=== PATIENT | male | born 1980 | race African-American/Black ===

== ENCOUNTER 2017-04-16 13:15 | Outpatient (RCR) | payer SELFPAY ==
[2017-04-16 13:45] VITALS: BP 138/84; PULSE 93; RESP 16; TEMP 36.9; BMI 22.2
--- NOTE | 2017-04-16 14:09 | WC ---
Addendum entered by Bella Hansen 04/16/17 14:10: PT HAS RT HIP POST OP SURGICAL INCISION W/ GLORIA. STATES THEY WERE TO BE REMOVED 2 WKS AGO BY SURGEON, BUT PT HAD NO TRANSPORTATION TO [facility]. INDEPENDENTLY MADE APPT HERE. ALSO VOICES CONCERN THAT HIS OSTEOMYELITIS IS WORSENING. CURRENTLY ON PO ATBS. ACCOMPANIED BY [employer]. Original Note: FREE EVAL COMPLETED. DR LYNN AND DRESSMAKER HELPER LEENA NEWTON. ADVISED PT TO GO TO ER.
== END 2017-04-29 23:59 ==
LOC: WC 13:15
PROVIDERS: Visit Provider Surgery
DX: Z09 Encounter for follow-up examination after completed treatment for conditions other than malignant neoplasm (principal)

== ENCOUNTER 2017-04-24 17:06 | Emergency (ER) | payer MEDICAID, SELFPAY ==
[2017-04-24 17:07] VITALS: BP 123/74; PULSE 123; RESP 20; TEMP 36.8; BMI 23.2
--- NOTE | 2017-04-24 17:39 | MRI_ITS ---
STUDY: MRI RIGHT HIP REASON FOR EXAM: Male, 36 years old. Severe right hip pain. Groin pain. Clinical suspicion for osteomyelitis. TECHNIQUE: Standardized fat and water weighted pulse sequences were obtained in all 3 orthogonal planes. COMPARISON: February 20, 2017 MRI and x-ray. FINDINGS: There is moderate articular narrowing of the hip joint, with greater than 50% loss of the hyaline cartilage. There is a cortical erosion of the weight bearing articular surface of the acetabulum. There is marrow edema and enhancement of the femoral head, femoral neck , and intratrochanteric region. There is moderate joint effusion Edema with enhancement of the gluteus minimus, medius , obturator, and iliopsoas muscles, tendons, and distal insertions. Normal superior and inferior pubic rami. Normal pubic symphysis. Normal ischial tuberosity. Normal origin of the hamstring tendons. Normal visualized iliac wing, sacroiliac joint, and sacral ala. Normal visualized soft tissue structures of the pelvis. MRI/Lower Ext Joint Only W/WO Cont IMPRESSION: There is increased marrow edema of the right acetabulum and proximal femur consistent with worsening and/or recurrent of osteomyelitis and septic arthritis. Results discussed with Dr. Crump 8:35 PM. N.B. : The above information has been verbally conveyed by Bayron Roth MD to Dr. Errol Crump, Referring Physician, on 04/24/2017 20:37:50 (ET). Electronically Signed: Bayron Roth MD at 20:37 EST , Service support , N.B. : The above information has been verbally conveyed by Bayron Roth MD to Dr. Errol Crump, Referring Physician, on 04/24/2017 20:37:50 (ET).
[2017-04-24] MEDS: 0.9% Normal Saline 1,000 ML 1000 ML IV ×2 (17:59)
[2017-04-24] MEDS: Ondansetron 4 MG/2 ML Vial IV (17:59)
[2017-04-24 18:01] LABS: Absolute Neutrophil Count 5.3 X10^3/uL (2.0-7.7); Basophil# 0.04 X10^3/uL; Basophil% 0.5 % (0-1); Eosinophil# 0.08 X10^3/uL; Hematocrit 36.5 % (40-54); Hemoglobin 11.3 g/dl (13.0-16.5); Lymphocyte % 19.6 % (19-41); Mean Corpuscular Hgb 27.2 pg (27.0-32.0); Mean Corpuscular Volume 87.7 fL (80-94); Mean Platelet Vol. 8.9 fl (6.2-12.0); Monocyte# 0.69 X10^3/uL; Neutrophil # 5.34 X10^3/uL (2.7-7.7); Neutrophil % 69.6 % (47-70); Platelet Count 230 K/mm3 (150-450); RBC Distribution Width CV 15.4 % (11.6-14.6); RBC Distribution Width SD 49.5 fl (35.1-43.9); Red Blood Count 4.16 M/mm3 (4.6-6.2); White Blood Count 7.7 K/mm3 (4.4-11.0)
[2017-04-24 18:02] LABS: POSITIVE COUNT NO; POSITIVE DIFFERENTIAL NO; POSITIVE MORPHOLOGY NO
[2017-04-24 18:22] LABS: Anion Gap 6 (5-15); BUN 13 mg/dL (7-18); Calcium,Total 8.5 mg/dL (8.5-10.1); Chloride 103 mmol/L (98-107); Creatinine, Serum 0.76 mg/dL (0.70-1.30); EST Glomerular Filtration Rate 121 mL/min (>60); Est Glom Filt Rate - Afr Amer 146 mL/min (>60); Estimated Creatinine Clearance 136.07 ml/min; Glucose 91 mg/dL (70-110); Potassium 3.6 mmol/L (3.5-5.1); Sodium Level 137 mmol/L (136-145)
[2017-04-24 18:26] LABS: Lactic Acid 1.4 mmol/L (0.4-2.0)
[2017-04-24 18:36] LABS: Erythrocyte Sedimentation Rate 43 mm/hr (0-15)
--- NOTE | 2017-04-24 22:59 | NURSING ---
2100 COMPUTERS WENT DOWN SEE DOWNTIME FORM
--- NOTE | 2017-04-25 00:36 | ED.VISSUMM ---
- ER Visit Summary Date of Service: 04/25/17 Chief Complaint: Right hip pain History of Present Illness: The patient is a 36 M with no primary care physician. Reports he has pain in his right hip that began approximately February 11. He was seen in the emergency department February 20 and had an MRI that showed osteomyelitis and a septic arthritis. He was transferred to [facility] and had surgery on this an orthopedic surgeon whose name he does not remember. He was scheduled to go to the infusion center daily and get Cubicin following this. He did not keep going to these appointment because they had a difficult time obtaining IVs when he went. He was scheduled to see ID on April 03 and did not go to this appointment. He has never followed up with the orthopedic surgeon. He states that he was placed on Keflex which he finished 3 days ago. He had been on this for 18 days. Patient reports that currently his pain is 10 out of 10 severity. It is a sharp, throbbing pain. It is worsened by movement. Is taken ibuprofen Tylenol without relief. Physical Examination: Vitals: Stable. Afebrile. General: Well-nourished and well-developed. Head: Normocephalic atraumatic. Neck: Supple, no lymphadenopathy. No JVD. Nontender. Cardiovascular: Regular rate and rhythm. No murmurs. Respiratory: No respiratory distress. Clear to auscultation bilaterally. Abdominal: Soft, nontender, nondistended, normal bowel sounds. No guarding, rebound, or peritoneal signs. Back: Nontender. Extremities: Incision over the right hip and right proximal femur is well healed. Is clean, dry, and intact. There is no erythema. Is moderately tender to palpation. There were [address] that were removed. He has moderate pain with movement of his hip. Skin: Normal color, no rash. Neurologic: Alert and oriented ?3. Cranial nerves II through XII are intact. Normal strength and sensation. Psych: Normal affect. Test Results: CBC is remarkable for a white count of 7.7, H&H 11.3 36.5. Chem-7 is normal. Sed rate is 43. CRP is 94.1. Lactic acid is 1.4. MRI of his right hip shows that there is worsening of the marrow edema of the right acetabulum and proximal femur consistent with worsening and/or recurrent osteomyelitis and septic arthritis. Emergency Department Course and Treatment: Patient had an IV placed. He was given morphine, Zofran, vancomycin, and Rocephin IV. Treatment Plan: Patient was discussed with Dr. Gilman, at [facility], who is accepted him in transfer. When the squad arrived to take the patient he refused to go because he was going to be alone overnight. I discussed with him the risk of loss of life or limb from overwhelming infection. Being unable to ambulate in the future. Potentially being wheelchair-bound. He is able to understand and is capable of making this poor decision. I also explained to him that I will not send him home with pain medications. The patient chose to leave AGAINST MEDICAL ADVICE. Disposition: Left AMA Impression: 1. Septic right hip, recurrent. 2. Osteomyelitis right acetabulum/proximal femur. 3. Left AMA. This note was generated with [employer] dictation software. It may contain incorrect words, spelling, and punctuation that were not noted in review of the chart prior to signing ED Disposition - Plan for ED Patient: Disposition: Against Medical Advice Chief Complaint: Lower Extremity Injury Referrals: Care Physician,No Primary [Primary Care Provider] -
--- NOTE | 2017-04-25 00:42 | ED.DCSUM_ITS ---
- ER Visit Summary Date of Service: 04/25/17 Chief Complaint: Right hip pain History of Present Illness: The patient is a 36 M with no primary care physician. Reports he has pain in his right hip that began approximately February 11. He was seen in the emergency department February 20 and had an MRI that showed osteomyelitis and a septic arthritis. He was transferred to [facility] and had surgery on this an orthopedic surgeon whose name he does not remember. He was scheduled to go to the infusion center daily and get Cubicin following this. He did not keep going to these appointment because they had a difficult time obtaining IVs when he went. He was scheduled to see ID on April 03 and did not go to this appointment. He has never followed up with the orthopedic surgeon. He states that he was placed on Keflex which he finished 3 days ago. He had been on this for 18 days. Patient reports that currently his pain is 10 out of 10 severity. It is a sharp , throbbing pain. It is worsened by movement. Is taken ibuprofen Tylenol without relief. Physical Examination: Vitals: Stable. Afebrile. General: Well-nourished and well-developed. Head: Normocephalic atraumatic. Neck: Supple, no lymphadenopathy. No JVD. Nontender. Cardiovascular: Regular rate and rhythm. No murmurs. Respiratory: No respiratory distress. Clear to auscultation bilaterally. Abdominal: Soft, nontender, nondistended, normal bowel sounds. No guarding, rebound, or peritoneal signs. Back: Nontender. Extremities: Incision over the right hip and right proximal femur is well healed. Is clean, dry, and intact. There is no erythema. Is moderately tender to palpation. There were [address] that were removed. He has moderate pain with movement of his hip. Skin: Normal color, no rash. Neurologic: Alert and oriented ?3. Cranial nerves II through XII are intact. Normal strength and sensation. Psych: Normal affect. Test Results: CBC is remarkable for a white count of 7.7, H&H 11.3 36.5. Chem- 7 is normal. Sed rate is 43. CRP is 94.1. Lactic acid is 1.4. MRI of his right hip shows that there is worsening of the marrow edema of the right acetabulum and proximal femur consistent with worsening and/or recurrent osteomyelitis and septic arthritis. Emergency Department Course and Treatment: Patient had an IV placed. He was given morphine, Zofran, vancomycin, and Rocephin IV. Treatment Plan: Patient was discussed with Dr. Gilman, at [facility], who is accepted him in transfer. When the squad arrived to take the patient he refused to go because he was going to be alone overnight. I discussed with him the risk of loss of life or limb from overwhelming infection. Being unable to ambulate in the future. Potentially being wheelchair-bound. He is able to understand and is capable of making this poor decision. I also explained to him that I will not send him home with pain medications. The patient chose to leave AGAINST MEDICAL ADVICE. Disposition: Left AMA Impression: 1. Septic right hip, recurrent. 2. Osteomyelitis right acetabulum/proximal femur. 3. Left AMA. This note was generated with [employer] dictation software. It may contain incorrect words, spelling, and punctuation that were not noted in review of the chart prior to signing ED Disposition - Plan for ED Patient: Disposition: Against Medical Advice Chief Complaint: Lower Extremity Injury Referrals: Care Physician,No Primary [Primary Care Provider] -
--- NOTE | 2017-04-25 18:52 | ED.RN ---
Called pt cell phone ([phone]) and left message related to test results. He was encouraged to return a call here about positive blood culture results.
--- NOTE | 2017-04-27 03:19 | ED.RN ---
spoke with [facility] ortho doctor about patients care and condition while in the ER . Patient just now have arrived to [facility] for care. release of medical records obtained and chart being faxed to them at this time
== END 2017-04-24 22:30 | disposition left against medical advice (07) ==
PROVIDERS: Emergency Provider Emergency Medicine
DX: M00.9 Pyogenic arthritis, unspecified (principal); M86.8X5 Other osteomyelitis, thigh; F17.210 Nicotine dependence, cigarettes, uncomplicated; Z99.3 Dependence on wheelchair
CPT/HCPCS: 73723; 80048; 83605; 85025; 85652; 86140; 87040; 87077; 87186; 96365; 96366; 96374; 96375; 96376; 99283; A9585; J7030; A4216; J2405

== ENCOUNTER 2017-10-08 19:56 | Emergency (ER) | payer MEDICAID, SELFPAY ==
--- NOTE | 2017-10-08 19:56 | DT_ITS ---
This patient was seen during an EMR downtime October 01, 2017 - October 08, 2017. This patient may have a combination of paper and electronic documentation or all paper documentation. All documentation is viewable within the e-chart portion of [facility] for each patient visit.
[2017-10-08 19:57] VITALS: BP 124/82; PULSE 128; RESP 18; TEMP 36.8; O2SAT 100; BMI 22.2
--- NOTE | 2017-10-08 20:30 | CT_ITS ---
STUDY: CT PELVIS WITH CONTRAST REASON FOR EXAM: Male, 36 years old. Post traumatic pain in right groin and leg RADIATION DOSAGE (If Supplied By Facility): CTDIvol = ( 8.82 ) mGy, DLP = ( 355.54 ) mGycm TECHNIQUE: Transaxial imaging of the pelvis was performed without oral contrast. 75 ml of Isovue 300 contrast was administered intravenously. Individualized dose optimization techniques were used for this CT. COMPARISON: None. FINDINGS: Normal urinary bladder. Normal visualized small intestine. Normal visualized colon. There is no pelvic fluid. There is no pelvic lymphadenopathy or mass lesion. Normal visualized pelvic arteries. Normal abdominal wall. There are erosive changes of the femoral head as well as the acetabular surface in association with large complex joint effusion.. This could be due to nonspecific inflammatory arthritis perhaps septic arthritis and osteomyelitis possibly chronic. Joint aspiration would be helpful for further evaluation if indicated. No evidence for acute fracture or dislocation CT/Pelvis WITH IV Contrast IMPRESSION: Complex joint effusion of the right hip with erosive changes of the hip joint possibly inflammatory. Clinical correlation recommended Electronically Signed: Aquiles Blackburn MD at 22:38 EDT , Service support ,
[2017-10-08] MEDS: 0.9% Normal Saline 1,000 ML 150 ML IV (20:43)
[2017-10-08] MEDS: Morphine 4 MG/ML Syringe IV ×2 (20:49→21:56)
[2017-10-08] MEDS: Ondansetron 4 MG/2 ML Vial IV (20:49)
[2017-10-08 20:51] LABS: Absolute Lymphocyte Count 2.66 X10^3/ul (0.83-4.51); Absolute Neutrophil Count 3.3 X10^3/uL (2.0-7.7); Basophil# 0.04 X10^3/uL; Basophil% 0.6 % (0-1); Eosinophil# 0.14 X10^3/uL; Eosinophils% 2.1 % (0-5); Hematocrit 33.6 % (40-54); Hemoglobin 10.3 g/dl (13.0-16.5); Lymphocyte # 2.66 X10^3/ul (4.0); Lymphocyte % 40.2 % (19-41); Mean Corp Hgb Conc 30.7 g/gl (32-36); Mean Corpuscular Hgb 24.9 pg (27.0-32.0); Mean Corpuscular Volume 81.2 fL (80-94); Mean Platelet Vol. 8.1 fl (6.2-12.0); Monocyte% 7.6 % (0-10); Neutrophil # 3.26 X10^3/uL (2.7-7.7); Neutrophil % 49.3 % (47-70); POSITIVE COUNT NO; POSITIVE DIFFERENTIAL NO; POSITIVE MORPHOLOGY NO; Platelet Count 359 K/mm3 (150-450); RBC Distribution Width SD 44.7 fl (35.1-43.9); Red Blood Count 4.14 M/mm3 (4.6-6.2); White Blood Count 6.6 K/mm3 (4.4-11.0)
[2017-10-08 21:07] LABS: Anion Gap 7 (5-15); BUN 16 mg/dL (7-18); BUN/Creat Ratio 20.2 RATIO (10-20); Calcium,Total 8.9 mg/dL (8.5-10.1); Chloride 101 mmol/L (98-107); Creatinine, Serum 0.79 mg/dL (0.70-1.30); EST Glomerular Filtration Rate 116 mL/min (>60); Est Glom Filt Rate - Afr Amer 140 mL/min (>60); Glucose 84 mg/dL (74-106); Potassium 4.2 mmol/L (3.5-5.1); Sodium Level 140 mmol/L (136-145)
--- NOTE | 2017-10-08 21:15 | RAD_ITS ---
STUDY: X-RAY - LEFT HAND REASON FOR EXAM: Male, 36 years old. Injury TECHNIQUE: 3 view(s) of the hand. COMPARISON: None. FINDINGS: There is ulnar dislocation at the fifth PIP joint with ulnar angulation. Normal radiocarpal articulation. Normal distal radioulnar joint. Normal visualized carpal bones. Normal carpal articulations Normal carpometacarpal articulation of the thumb. Normal second through fifth carpometacarpal joints. Normal metacarpi. Normal metacarpophalangeal joint of the thumb. Normal interphalangeal joint of the thumb. Normal proximal and distal phalanges of the thumb. Normal metacarpophalangeal joints of the second through fifth fingers. Normal phalanges of the second through fifth fingers. The soft tissue structures are unremarkable. RAD/Hand Min 3 Views IMPRESSION: Ulnar dislocation fifth PIP joints with ulnar angulation Electronically Signed: Morgan Vicente MD at 21:29 EDT Tel , Service support ,
--- NOTE | 2017-10-08 23:13 | US_ITS ---
STUDY: VENOUS DOPPLER ULTRASOUND - BILATERAL LOWER EXTREMITIES REASON FOR EXAM: Male, 36 years old. Right leg swelling TECHNIQUE: Ultrasound evaluation of the deep vein system to include cottrell-scale imaging and compression was performed. Cottrell-scale imaging and Doppler sonographic evaluation, including duplex spectral analysis and qualitative color flow sonography, was performed. Focal or flow analysis was not provided. The compression images are demonstrated. COMPARISON: None. FINDINGS: RIGHT LEG Common Femoral Vein: Normal compression, spontaneity and augmentation. Normal color Doppler. Femoral Proximal: Normal compression, Femoral Middle: Normal compression, spontaneity and augmentation. Normal color Doppler. Femoral Distal: Normal compression, Popliteal Vein: Normal compression, Normal color Doppler. Posterior Tibial Vein: Normal compression, spontaneity and augmentation. Normal color Doppler. Peroneal Vein: Normal compression. LEFT LEG Common Femoral Vein: Normal compression, spontaneity and augmentation. Normal color Doppler. Femoral Proximal: Normal compression,. Femoral Middle: Normal compression, spontaneity and augmentation. Normal color Doppler. Femoral Distal: Normal compression,. Popliteal Vein: Normal compression, spontaneity and augmentation. Normal color Doppler. Posterior Tibial Vein: Normal compression,.. Peroneal Vein: Normal compression,. US/Venous Duplex Imag/Hayden Extrem IMPRESSION: Normal venous Doppler ultrasound of the bilateral lower extremities. There is good compression throughout. Limited color flow images are provided. Electronically Signed: Mary Irvin MD at 0:38 EDT Tel , Service support ,
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
[2017-10-08 23:55] LABS: Erythrocyte Sedimentation Rate 98 mm/hr (0-15)
[2017-10-09 00:09] VITALS: BP 98/69; PULSE 107; RESP 20; O2SAT 99
[2017-10-09 01:26] VITALS: BP 106/65; PULSE 107; RESP 18; O2SAT 99
[2017-10-09 01:34] VITALS: BP 106/65; PULSE 107; RESP 18; TEMP 36.8; O2SAT 99
--- NOTE | 2017-10-09 02:52 | ED.RN ---
PATIENT MADE AWARE THAT IF HIS RIDE WAS NOT HERE WITHIN THE NEXT [address] FLYNN, HE WOULD NEED TO BE TRANSPORTED BY AMBULANCE. PT MADE AWARE AND AGREED TO AMBULANCE TRANSPORT.
--- NOTE | 2017-10-09 03:26 | ED.RN ---
PATIENT REFUSED AMBULANCE TRANSPORT, FRIEND SHOWED UP TO GIVE PATIENT A RIDE. PRIVATE TRANSPORT PAPER SIGNED BY BOTH CHARGE ACCOUNT CLERK AND PATIENT, CHART GIVEN TO PATIENT AND INSTRUCTED THAT HE MUST GO TO [facility] NOW, NOT IN MORNING HE PREVIOUSLY REQUESTED.
== END 2017-10-09 03:28 | disposition short-term general hospital (02) ==
PROVIDERS: Emergency Provider Emergency Medicine
DX: M25.451 Effusion, right hip (principal); M24.445 Recurrent dislocation, left finger
CPT/HCPCS: 72193; 73130; 80048; 85025; 85652; 86140; 93970; 96374; 96375; 99284; J7030; Q9967; A4216; J2405

== ENCOUNTER 2018-01-01 17:15 | Emergency (ER) | payer MEDICAID, SELFPAY ==
[2018-01-01 17:16] VITALS: PULSE 78; RESP 22; TEMP 36.5; O2SAT 98; BMI 21.8
[2018-01-01 19:15] VITALS: BP 108/72; PULSE 93; RESP 14; O2SAT 100
[2018-01-01] MEDS: Ketorolac 30 MG/ML Syringe IV (19:57)
[2018-01-01] MEDS: Ondansetron 4 MG/2 ML Vial IV (19:57)
[2018-01-01] MEDS: 0.9% Normal Saline 1,000 ML 1000 ML IV (19:57)
[2018-01-01 20:56] LABS: Absolute Lymphocyte Count 1.86 X10^3/ul (0.83-4.51); Absolute Neutrophil Count 6.8 X10^3/uL (2.0-7.7); Basophil# 0.06 X10^3/uL; Basophil% 0.6 % (0-1); Eosinophil# 0.04 X10^3/uL; Eosinophils% 0.4 % (0-5); Hematocrit 38.6 % (40-54); Hemoglobin 12.5 g/dl (13.0-16.5); Lymphocyte # 1.86 X10^3/ul (4.0); Lymphocyte % 19.7 % (19-41); Mean Corp Hgb Conc 32.4 g/gl (32-36); Mean Corpuscular Hgb 26.7 pg (27.0-32.0); Mean Corpuscular Volume 82.3 fL (80-94); Mean Platelet Vol. 9.6 fl (6.2-12.0); Monocyte# 0.68 X10^3/uL; Monocyte% 7.2 % (0-10); Platelet Count 310 K/mm3 (150-450); RBC Distribution Width CV 16.2 % (11.6-14.6); RBC Distribution Width SD 48.2 fl (35.1-43.9); Red Blood Count 4.69 M/mm3 (4.6-6.2); White Blood Count 9.5 K/mm3 (4.4-11.0)
[2018-01-01 20:57] LABS: POSITIVE COUNT NO; POSITIVE DIFFERENTIAL NO; POSITIVE MORPHOLOGY NO
[2018-01-01 21:11] LABS: Anion Gap 9 (5-15); BUN 21 mg/dL (7-18); BUN/Creat Ratio 16.8 RATIO (10-20); Calcium,Total 9.4 mg/dL (8.5-10.1); Chloride 105 mmol/L (98-107); Creatinine, Serum 1.25 mg/dL (0.70-1.30); EST Glomerular Filtration Rate 68 mL/min (>60); Est Glom Filt Rate - Afr Amer 83 mL/min (>60); Estimated Creatinine Clearance 77.37 ml/min; Glucose 99 mg/dL (74-106); Potassium 3.6 mmol/L (3.5-5.1); Sodium Level 140 mmol/L (136-145)
[2018-01-01 21:23] VITALS: BP 114/79; PULSE 99; RESP 24; O2SAT 96
[2018-01-01 21:23] LABS: AST(SGOT) 27 U/L (15-37); Alanine Aminotransfer ALT/SGPT 30 U/L (16-61); Albumin, Serum 3.7 g/dL (3.2-5.0); Alkaline Phosphatase 120 U/L (45-117); Bilirubin, Direct 0.13 mg/dL (0.00-0.30); Globulin 5.1 g/dL (2.2-4.2); Lipase 42 U/L (73-393); Protein, Total 8.8 g/dL (6.4-8.2)
[2018-01-01 21:24] LABS: Lactic Acid 1.6 mmol/L (0.4-2.0)
[2018-01-01] MEDS: 0.9% Normal Saline 1,000 ML 150 ML IV (23:09)
[2018-01-01 23:38] VITALS: BP 129/75; PULSE 74; RESP 15; O2SAT 97
--- NOTE | 2018-01-01 23:59 | ED.VISSUMM ---
- ER Visit Summary Date of Service: 01/01/18 Chief Complaint: Abdominal pain History of Present Illness: The patient is a 37 M who is a very poor informant. Friend at bedside provides much of the history. He has had abdominal pain since yesterday the left upper quadrant. He reports nausea and vomiting and states his last episode of vomiting was yesterday. The friend asked me to look at his left hand. The left fifth finger is amputated with a scabbed wound. The friend states his finger fell off 2 weeks ago and he did not go to the hospital. Review of records patient has had chronic leg pain secondary to a septic hip. He has signed out from the hospital multiple times AMA. He was seen here in September of this year and at that time had a chronically dislocated PIP joint of the left fifth finger. Patient was transferred to [facility] in [place]. Physical Examination: Vital signs are unremarkable. Head and neck examination reveals no sign of trauma Lung sounds are clear. Abdomen is soft with mild tenderness left upper quadrant. There is no guarding or rebound. Hypoactive bowel sounds noted throughout. Extremity examination reveals the left fifth finger to be amputated the PIP joint. He is a thin film of tissue covering bone. There is no significant skin erythema or drainage. Neuro exam reveals patient to be resting with his eyes closed. He will answer yes or no to most questions but not open his eyes or participate in conversation. Test Results: CBC reveals hemoglobin 12.5 with normal white count. Chemistry studies unremarkable. LFTs normal. Lactate is normal. CT abdomen pelvis shows left-sided hydronephrosis and hydroureter secondary to a distal ureteral calculus measuring 3 mm. Erosive changes of the right hip are noted. Left hand x-rays reveal sequelae of amputation of the middle and distal phalanges of the pinky finger. There is questionable radiopaque foreign bodies in the proximal pinky finger. Emergency Department Course and Treatment: She has been given Toradol, Zofran, and IV fluids. Patient remains very sleepy. I spoken with family and friend at bedside. At this time I still would like to check his urine to ensure no sign of infection. At this time I do not feel that he is able to consent to this or to understand what we are doing. Patient will continue to be monitored and urine will be checked. Left hand wound has been dressed. At this time patient be written for Toradol and Keflex. Urine will be checked and prescriptions changed as needed. Treatment Plan: [] Disposition: Anticipated discharge Impression: 1. Left ureterolithiasis 2. Left fifth finger amputation This note was generated with [employer] dictation software. It may contain incorrect words, spelling, and punctuation that were not noted in review of the chart prior to signing ED Disposition - Plan for ED Patient: Chief Complaint: Abd Pain Referrals: Care Physician,No Primary [Primary Care Provider] -
--- NOTE | 2018-01-02 00:16 | ED.DEP ---
ED Disposition - Plan for ED Patient: Disposition: Home or Assisted Living Chief Complaint: Abd Pain Instructions: ED Stone Renal W Colic, ED Laceration Amputation Finger Tip Open Tx Prescriptions: Cephalexin [Keflex] 500 mg PO Q6 #40 capsule Ketorolac [Toradol] 10 mg PO Q6H PRN #20 tablet PRN Reason: Pain Referrals: Bony Lynn MD [STAFF PHYSICIAN] - 1 Week if not improving Miah May DO [STAFF PHYSICIAN] - As soon as possible
[2018-01-02 01:40] VITALS: BP 101/63; RESP 13; O2SAT 98
[2018-01-02 03:19] VITALS: BP 124/78; PULSE 91; RESP 20; O2SAT 99
[2018-01-02 03:42] LABS: Color, Urine Yellow (Yellow); Glucose, Dipstick Normal (Normal); Ketone-Dipstick 50 mg/dl (Negative); Leukocyte Esterase-Dipstick 25 /ul (Negative); Mucous, Urine 0 SEEN /hpf (<or=2+); Nitrite-Dipstick Negative (Negative); Occult Blood-Urine 150 /ul (Negative); Protein-Dipstick 30 mg/dl (Negative); Specific Gravity, Urine 1.015 (1.002-1.030); Urine Bilirubin Dipstick Negative (Negative); Urine Clarity Clear (Clear); Urine Urobilinogen Normal (Normal); Urine pH 6.5 (5.0 - 8.0)
[2018-01-02 03:48] LABS: Red Blood Cells-Urine 5-10 SEEN /hpf (0-5); Squamous Epithelial Cells - UA 0-5 SEEN /hpf (0-5)
[2018-01-02 03:49] LABS: Bacteria RARE /hpf (None Seen); White Blood Cells 0-5 SEEN /hpf (0-5)
[2018-01-02 04:05] VITALS: BP 128/70; PULSE 74; RESP 17; O2SAT 98
--- NOTE | 2018-01-02 04:05 | ED.RN ---
PT AND FRIEND EDUCATED ON WRITTEN AND VERBAL DISCHARGE INSTRUCTIONS AND HOME GOING PRESCRIPTIONS. PT VERBALIZES UNDERSTANDING AND DENIES ANY FURTHER PROBLEMS. PT IVS /C AND COVERED WITH 2X2 GAUZE AND PAPER TAPE. PT LEFT HAND WOUND WRAPPED IN TELFA AND GAUZE WRAP. PT FRIEND WHEELS PT OUT OF DEPT IN A WHEELCHAIR.
== END 2018-01-02 04:07 | disposition home or self-care (01) ==
PROVIDERS: Emergency Provider Emergency Medicine
DX: N13.2 Hydronephrosis with renal and ureteral calculous obstruction (principal); S68.127A Partial traumatic metacarpophalangeal amputation of left little finger, initial encounter; X58.XXXA Exposure to other specified factors, initial encounter; Y93.9 Activity, unspecified; Y92.9 Unspecified place or not applicable; Z72.0 Tobacco use
CPT/HCPCS: 73130; 74177; 80048; 80076; 81001; 83605; 83690; 85025; 96361; 96374; 96375; 99285; J7030; A4216; J2405

== ENCOUNTER 2018-07-03 17:56 | Emergency (ER) | payer MEDICAID, SELFPAY ==
[2018-07-03 17:58] VITALS: BP 187/140; PULSE 119; RESP 24; TEMP 36.7; O2SAT 98; BMI 22.9
[2018-07-03 18:01] VITALS: TEMP 36.7; BMI 22.9
[2018-07-03 18:03] VITALS: PULSE 112; RESP 20; O2SAT 98
[2018-07-03] MEDS: Ondansetron 4 MG/2 ML Vial IV (18:45)
[2018-07-03] MEDS: HYDROmorphone 1 MG/ML Syringe IV ×2 (18:45→20:17)
[2018-07-03 18:49] VITALS: BP 135/76; PULSE 111; RESP 20; O2SAT 97
[2018-07-03 18:58] LABS: Absolute Lymphocyte Count 1.55 X10^3/ul (0.83-4.51); Basophil# 0.04 X10^3/uL; Basophil% 0.4 % (0-1); Eosinophil# 0.05 X10^3/uL; Eosinophils% 0.5 % (0-5); Hematocrit 46.8 % (40-54); Hemoglobin 14.4 g/dl (13.0-16.5); Lymphocyte # 1.55 X10^3/ul (4.0); Lymphocyte % 14.9 % (19-41); Mean Corp Hgb Conc 30.8 g/gl (32-36); Mean Corpuscular Hgb 27.5 pg (27.0-32.0); Mean Corpuscular Volume 89.3 fL (80-94); Mean Platelet Vol. 9.9 fl (6.2-12.0); Monocyte# 0.72 X10^3/uL; Monocyte% 6.9 % (0-10); Neutrophil # 8.01 X10^3/uL (2.7-7.7); Neutrophil % 77.2 % (47-70); Platelet Count 280 K/mm3 (150-450); RBC Distribution Width CV 14.3 % (11.6-14.6); RBC Distribution Width SD 46.7 fl (35.1-43.9); Red Blood Count 5.24 M/mm3 (4.6-6.2); White Blood Count 10.4 K/mm3 (4.4-11.0)
[2018-07-03 19:02] LABS: POSITIVE COUNT NO; POSITIVE DIFFERENTIAL NO; POSITIVE MORPHOLOGY NO
--- NOTE | 2018-07-03 19:05 | RAD_ITS ---
STUDY: X-RAY - RIGHT HIP REASON FOR EXAM: Male, 37 years old. Pain TECHNIQUE: Frontal view of the pelvis and 2 views of the hip. COMPARISON: CT dated 10/08/2017 FINDINGS: There is no fracture or dislocation in the right hip. There are stable severe degenerative changes with loss of joint space. There are no definite radiographic findings of osteomyelitis. RAD/HIP, UNI W/ Pelvis 2-3 Views IMPRESSION: No fracture or dislocation of the right hip. Stable severe degenerative changes. No definite radiographic findings of osteomyelitis. Electronically Signed: Morgan Foreman, at 19:24 EST Tel , Service support ,
[2018-07-03 19:07] LABS: International Normalized Ratio 1.1; Partial Thromboplast Time 33.3 Seconds (24.1-36.2); Prothrombin Time (Protime)PT. 14.3 SECONDS (11.7-14.9)
[2018-07-03 19:09] LABS: Anion Gap 8 (5-15); BUN 23 mg/dL (7-18); BUN/Creat Ratio 23.8 RATIO (10-20); CRP 7.21 mg/L (0.0-3.0); Calcium,Total 8.8 mg/dL (8.5-10.1); Chloride 105 mmol/L (98-107); Creatinine, Serum 0.97 mg/dL (0.70-1.30); EST Glomerular Filtration Rate 92 mL/min (>60); Est Glom Filt Rate - Afr Amer 111 mL/min (>60); Estimated Creatinine Clearance 104.96 ml/min; Glucose 88 mg/dL (74-106); Potassium 3.9 mmol/L (3.5-5.1); Sodium Level 139 mmol/L (136-145)
[2018-07-03 19:20] LABS: Erythrocyte Sedimentation Rate 18 mm/hr (0-15)
[2018-07-03 20:21] VITALS: BP 126/74; PULSE 116; RESP 20; O2SAT 97
--- NOTE | 2018-07-03 21:34 | HP.PCM_ITS ---
History of Present Illness The patient is a 37 year old M [] Past Medical History Allergies Fish Containing Products Allergy (Verified 07/03/18 17:58) Anaphylaxis WOOL Allergy (Uncoded 01/01/18 17:20) Rash Home Medications: Ambulatory Orders Medication Instructions Recorded NK 07/03/18 Smoking Status: Current every day smoker - Physical Exam Vital Signs Temp Pulse Resp BP Pulse Ox 98.1 F 116 H 20 H 126/74 H 97 07/03/18 18:01 07/03/18 20:21 07/03/18 20:21 07/03/18 20:21 07/03/18 20:21 Oxygen Delivery Method Room Air Weight: 72.575 kg Body Mass Index (BMI) 22.9 Laboratory Tests Past 24 Hrs 07/03/18 07/03/18 07/03/18 18:03 18:03 18:03 WBC 10.4 RBC 5.24 Hgb 14.4 Hct 46.8 MCV 89.3 MCH 27.5 MCHC 30.8 L RDW 14.3 RDW Differential 46.7 H Plt Count 280 MPV 9.9 Immature Gran % (Auto) 0.100 Neut % (Auto) 77.2 H Lymph % (Auto) 14.9 L Logan % (Auto) 6.9 Eos % (Auto) 0.5 Baso % (Auto) 0.4 Absolute Neuts (auto) 8.0 H Absolute Lymphs (auto) 1.55 Total Counted Not Reportable ESR 18 H PT 14.3 INR 1.1 APTT 33.3 Sodium 139 Potassium 3.9 Chloride 105 Carbon Dioxide 26.0 Anion Gap 8 BUN 23 H Creatinine 0.97 Estim Creat Clear Calc 104.96 Est GFR (MDRD) Af Amer 111 Est GFR (MDRD) Non-Af 92 BUN/Creatinine Ratio 23.8 H Glucose 88 Calcium 8.8 C-React Prot Ext Range 7.21 H Assessment/Plan All Active Problems Odontalgia (Acute) Medicine refill (Acute) Chronic back pain (Acute)
[2018-07-03 22:41] VITALS: BP 134/79; PULSE 118; RESP 16; O2SAT 96
--- NOTE | 2018-07-03 23:19 | ED.VISSUMM ---
- ER Visit Summary Date of Service: 07/03/18 Chief Complaint: Right hip pain History of Present Illness: The patient is a 37 M with right hip pain that started today. The pain is severe and came on spontaneously earlier today. 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 He was treated operatively at [facility] and was on 6-8 weeks of antibiotics. He has been doing well since his treatment up until today. He denies fevers or any other associated symptoms. Physical Examination: Afebrile and vital signs unremarkable. Patient appears in distress, tearful. He is alert and oriented. Heart and lung exams unremarkable. Abdomen soft and nontender. Right hip shows normal inspection. Skin appears normal. He has exquisite pain with any range of motion of his right hip. He is neurovascularly intact distally. No shortening or abnormal rotation. Test Results: X-ray showed no fracture or sign of osteomyelitis. CBC, BMP, coags, ESR, and CRP unremarkable. Emergency Department Course and Treatment: Patient was treated with Dilaudid and Zofran while awaiting results. Patient's workup was reassuring but he required continued pain medicine and received additional Dilaudid. 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 Patient will need a joint aspiration. He may also need further advanced imaging like MRI. He will need an orthopedics consult. I attempted to call our orthopedist here. He notified me that he was not mergers and acquisitions consultant as this patient was not previously established with him. I initially called [facility] as the patient had been there previously for treatment. I spoke with the hospitalist who felt that the transfer was inappropriate that we should evaluate the patient here first. I advised that the patient needs a surgical evaluation. I called [facility], and they were full. I called [facility], and they were also full. I called [facility] spoke with an orthopedist there. He agreed that the patient needed to be seen by an orthopedic doctor. He advised that the patient is young and this can be a complicated issue. He recommended that the patient should go back to [facility]. I called [facility] again and spoke with Dr. Livingston of surgery. He advised a transfer to the ED where the patient can be evaluated for further care. Treatment Plan: As above Disposition: Transfer Impression: 1. Right hip pain This note was generated with Dragon dictation software. It may contain incorrect words, spelling, and punctuation that were not noted in review of the chart prior to signing ED Disposition - Plan for ED Patient: Disposition: [facility] Referrals: Care Physician,No Primary [Primary Care Provider] -
--- NOTE | 2018-07-03 23:23 | ED.DCSUM_ITS ---
- ER Visit Summary Date of Service: 07/03/18 Chief Complaint: Right hip pain History of Present Illness: The patient is a 37 M with right hip pain that started today. The pain is severe and came on spontaneously earlier today. He had similar symptoms in the past when he had a septic right hip and osteomye litis of his right acetabulum and femoral head. He was treated operatively at [facility] and was on 6-8 weeks of antibiotics. He has been doing well since his treatment up until today. He denies fevers or any other associated symptoms. Physical Examination: Afebrile and vital signs unremarkable. Patient appears in distress, tearful. He is alert and oriented. Heart and lung exams unremarkable. Abdomen soft and nontender. Right hip shows normal inspection. Skin appears normal. He has exquisite pain with any range of motion of his right hip. He is neurovascularly intact distally. No shortening or abnormal rotation. Test Results: X-ray showed no fracture or sign of osteomyelitis. CBC, BMP, coags, ESR, and CRP unremarkable. Emergency Department Course and Treatment: Patient was treated with Dilaudid and Zofran while awaiting results. Patient's workup was reassuring but he required continued pain medicine and received additional Dilaudid. 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 Patient will need a joint aspiration. He may also need further advanced imaging like MRI. He will need an orthopedics consult. I attempted to call our orthopedist here. He notified me that he was not program manager environmental planning as this patient was not previously established with him. I initially called [facility] as the patient had been there previously for treatment. I spoke with the hospitalist who felt that the transfer was inappropriate that we should evaluate the patient here first. I advised that the patient needs a surgical evaluation. I called [facility], and they were full. I called [facility], and they were also full. I called [facility] spoke with an orthopedist there. He agreed that the patient needed to be seen by an orthopedic doctor. He advised that the patient is young and this can be a complicated issue. He recommended that the patient should go back to [facility]. I called [facility] again and spoke with Dr. Livingston of surgery. He advised a transfer to the ED where the patient can be evaluated for further care. Treatment Plan: As above Disposition: Transfer Impression: 1. Right hip pain This note was generated with Dragon dictation software. It may contain incorrect words, spelling, and punctuation that were not noted in review of the chart prior to signing ED Disposition - Plan for ED Patient: Disposition: [facility] Referrals: Care Physician,No Primary [Primary Care Provider] -
== END 2018-07-03 23:10 | disposition short-term general hospital (02) ==
PROVIDERS: Emergency Provider Emergency Medicine
DX: M25.551 Pain in right hip (principal); Z72.0 Tobacco use; F11.90 Opioid use, unspecified, uncomplicated
CPT/HCPCS: 73502; 80048; 85025; 85610; 85652; 85730; 86140; 96374; 96375; 96376; 99285; J7030; A4216; J2405

== ENCOUNTER 2018-07-16 12:34 | Emergency (ER) | payer MEDICAID, SELFPAY ==
[2018-07-16 12:35] VITALS: BP 112/75; PULSE 120; RESP 14; TEMP 36.3; O2SAT 98; BMI 22.6
--- NOTE | 2018-07-16 12:56 | RAD_ITS ---
STUDY: X-RAY - RIGHT HIP REASON FOR EXAM: Male, 37 years old. Right hip pain TECHNIQUE: 2 views of the hip. COMPARISON: 07/03/2018 FINDINGS: Severe erosive changes are noted in the femoral head and acetabulum may represent septic arthritis. Normal neck, intertrochanteric region and visualized proximal femur. Normal acetabulum. There is severe articular joint space narrowing. Normal visualized superior and inferior pubic rami and ischial tuberosities. RAD/HIP, UNI W/ Pelvis 2-3 Views IMPRESSION: Possible septic arthritis. Electronically Signed: Irasema Bravo, at 13:30 EDT Tel , Service support ,
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
--- NOTE | 2018-07-16 14:00 | ED.RN ---
PT WAS IN THE ROOM WAITING FOR DC. POLICE LEFT DEPARTMENT AND WANTED A CALL WHEN [place] POLICE CALLED PT LEFT DEPARTMENT PRIOR TO POLICE ARRIVAL
== END 2018-07-16 14:02 | disposition home or self-care (01) ==
PROVIDERS: Emergency Provider Emergency Medicine
DX: M13.851 Other specified arthritis, right hip (principal); G89.29 Other chronic pain; M54.9 Dorsalgia, unspecified; F17.200 Nicotine dependence, unspecified, uncomplicated
CPT/HCPCS: 73502; 99284

== ENCOUNTER 2023-11-22 19:20 | Emergency (ER) | payer OTHER, SELFPAY ==
[2023-11-22 19:21] VITALS: BP 124/78; PULSE 100; RESP 18; TEMP 36.3; O2SAT 98; BMI 27.3
--- NOTE | 2023-11-22 20:46 | EDS_ITS ---
HPI <ALFREDO Shaw - Last Filed: 11/22/23 20:52> History of Present Illness Chief Complaint: Laceration Narrative Narrative: Patient is a 43-year-old male with no significant ankle history presents to the emergency department with a laceration to the left ankle. Patient states he was working on a car, he keeps a knife in his belt, he thinks it went loose and fell into his left ankle. Patient saw blood immediately, the woman that he was with started freaking out he wrapped it in a towel and came straight here. Tetanus vaccination is unknown. Full range of motion of the left foot. PFSH <ALFREDO Shaw - Last Filed: 11/22/23 20:52> [facility] Home Medications ?Medication ?Instructions ?Recorded ?Last Taken ?Type naproxen 500 mg tablet 500 mg PO BID #14 tabs 07/16/18 Unknown Rx Allergy/AdvReac Type Severity Reaction Status Date / Time Fish Containing Products Allergy Anaphylaxis Verified 11/22/23 19:21 wool Allergy Rash Verified 11/22/23 19:21 Social History Smoking Status: Current every day smoker tobacco type: cigarettes ROS <ALFREDO Shaw - Last Filed: 11/22/23 20:52> ROS ED ROS Narrative Constitutional: Negative for fever, chills, weight loss, weakness Eyes: Negative for vision loss, vision change, double vision ENT: Negative for any sore throat, ear pain, congestion Cardiovascular: Negative for any chest pain, tightness, palpitations Respiratory: Negative for any cough, sputum production, hemoptysis, dyspnea, dyspnea on exertion, orthopnea Gastrointestinal: Negative for any abdominal pain, nausea, vomiting, diarrhea, constipation, blood in stool, blood in vomit : Negative for any urinary frequency, dysuria, retention, blood in urine Muscle skeletal: Negative for any neck pain, back pain Neurological: Negative for any headache, syncope, dizziness Skin: Negative for any rashes, itching, abrasions. Laceration left ankle Psychiatric: Negative for any depression, anxiety, stress, suicidal ideation, homicidal ideation Hematologic: Negative for any excessive bruising, easy bleeding EXAM <ALFREDO Shaw - Last Filed: 11/22/23 20:52> Physical Exam Narrative Exam Narrative: Vital signs reviewed. Extremities: No peripheral edema, no signs of gross trauma or deformity. Active full range of motion of all extremities. Patient has a small 1 cm horizontal laceration to the medial malleolus. There is some continuous bleeding however it is a small laceration. Full range of motion of the foot. Neuro: Cranial nerves II through XII intact, no focal neurological deficits. Skin: Clean dry and intact with no rash, purpura, petechiae, vesicles or pustules. Backs/flank: No CVA tenderness, no midline spinal tenderness, no deformity. Psych: Normal mood and affect. No SI, HI or acute psychosis. Const Vital Signs: 11/22/23 19:21 Temperature 97.3 F L Temperature Source Temporal Pulse Rate 100 Respiratory Rate 18 Blood Pressure 124/78 H Blood Pressure Mean 93 Pulse Ox 98 Oxygen Delivery Method Room Air <Dr. Mayur Hernandez DO - Last Filed: 11/22/23 23:00> Physical Exam Const Vital Signs: 11/22/23 19:21 Temperature 97.3 F L Temperature Source Temporal Pulse Rate 100 Respiratory Rate 18 Blood Pressure 124/78 H Blood Pressure Mean 93 Pulse Ox 98 Oxygen Delivery Method Room Air MDM <ALFREDO Shaw - Last Filed: 11/22/23 20:52> [facility] Treatment and Re-Evaluation Narrative: Differential diagnosis includes however is not limited to: Tendon involvement, foreign body, simple laceration Patient is in no obvious distress vital signs are stable. Patient presents to the emergency department with complaints of a small laceration 1 cm horizontal to the left ankle just posterior to the left lateral malleolus. We spoke about possibly not doing any sutures. The area was cleaned, it was full-thickness however not significantly deep. However it kept oozing blood, at this time, we chose to do sutures. Sterile gloves sterile drapes were used. Lidocaine 1 mL was used. I also placed 2 simple interrupted sutures of 4-0 Ethilon. Tolerated well. Patient will be removed in 7 days. Instructed to return for any worsening symptoms. <Dr. Mayur Hernandez, - Last Filed: 11/22/23 23:00> [facility] Treatment and Re-Evaluation Narrative: Differential diagnosis includes however is not limited to: Tendon involvement, foreign body, simple laceration Patient is in no obvious distress vital signs are stable. Patient presents to the emergency department with complaints of a small laceration 1 cm horizontal to the left ankle just posterior to the left lateral malleolus. We spoke about possibly not doing any sutures. The area was cleaned, it was full-thickness however not significantly deep. However it kept oozing blood, at this time, we chose to do sutures. Sterile gloves sterile drapes were used. Lidocaine 1 mL was used. I also placed 2 simple interrupted sutures of 4-0 Ethilon. Tolerated well. Patient will be removed in 7 days. Instructed to return for any worsening symptoms. Patient presenting with small laceration about 1 cm on the left ankle. This occurred when he dropped his knife that are riding his bike. States that bleeding was controlled. Nurse petitioner placed 2 sutures please see procedure note. Tetanus was updated. Wound care instructions and return precautions discussed. Discharge Plan Triage Chief Complaint: Laceration ED Midlevel Provider: Zuhair Bradford ED Provider: Mayur Hernandez Dx/Rx/DC Orders Clinical Impression: Foot laceration Instructions: ED Laceration, All Closures Prescriptions: No Action naproxen 500 MG tablet 500 mg PO BID Qty: 14 0RF Primary Care Provider: Care Physician,No Primary Referrals: Care Physician,No Primary [Primary Care Provider] - Activity Restrictions/Additional Instructions: Your sutures need to be removed in 5 to 7 days Print Language: Kiswahili Disposition Disposition: Home, Self Care Discharge Date/Time: 11/22/23 21:03
== END 2023-11-22 21:03 | disposition home or self-care (01) ==
PROVIDERS: Emergency Provider Student in an Organized Health Care Education/Training Program; Visit Provider Student in an Organized Health Care Education/Training Program
DX: S91.319A Laceration without foreign body, unspecified foot, initial encounter (principal); W19.XXXA Unspecified fall, initial encounter; Y99.0 Civilian activity done for income or pay; F17.210 Nicotine dependence, cigarettes, uncomplicated
CPT/HCPCS: 12001; 99282